=== PATIENT | male | born 1965 | race Caucasian/White ===

== ENCOUNTER 2019-02-27 23:17 | Emergency (ER) | payer MEDICARE ==
[~2019-02-27] VITALS: Ht 185.4 cm; Wt 64.0 kg
[~2019-02-27 23:17] MED LIST: ALBU90OI6 INH; ASPI81CH PO; BREO ELLIPTA 11 EACH IH; FLUSAL2505 INH; LEVO750 PO; Lisinopril2.5 MG PO; METO25ER PO; PRED20 PO; QVAR7.3 G1 IH; SACC250C PO; SPIR50 PO
[2019-02-27 23:50] LABS: BASOPHILS ABSOLUTE AUTO 0.12 K/mm3 (0.00-0.23); BASOPHILS PERCENT AUTO 2 % (0-2); EOSINOPHILS PERCENT AUTO 1 % (0-6); Hematocrit 40.1 % (37.0-53.0); Hemoglobin 13.2 g/dL (13.5-17.5); IMMATURE GRAN ABSOLUTE AUTO 0.05 K/mm3 (0.00-0.10); IMMATURE GRAN PERCENT AUTO 1 % (0-1); LYMPHOCYTES ABSOLUTE AUTO 1.75 K/mm3 (0.84-5.20); LYMPHOCYTES PERCENT AUTO 22 % (21-46); MONOCYTES ABSOLUTE AUTO 0.83 K/mm3 (0.16-1.47); MONOCYTES PERCENT AUTO 10 % (4-13); Mean Corpuscular HGB 33.8 pg (26.0-34.0); Mean Corpuscular HGB Conc 32.9 g/dL (31.5-36.5); Mean Corpuscular Volume 103 fL (80-100); NEUTROPHILS PERCENT AUTO 64 % (41-73); Platelet Count 200 K/mm3 (150-400); Red Blood Cell Count 3.91 M/mm3 (4.30-5.90); White Blood Cell Count 7.95 K/mm3 (4.00-11.30)
[2019-02-28 00:06] LABS: Alanine Aminotransfer (ALT/SGP 11 U/L (12-78); Albumin, Blood 2.5 g/dL (3.4-5.0); Albumin/Globulin Ratio 0.7 (0.8-1.8); Alk Phos 68 U/L (50-136); Anion Gap 8 mmol/L (6-16); Aspartate Aminotrans (AST/SGOT 14 U/L (12-37); Bilirubin, Total 0.4 mg/dL (0.1-1.0); Blood Urea Nitrogen 6 mg/dL (8-24); Bun/Creatinine Ratio 9.1 (12.0-20.0); CO2, Blood 29 mmol/L (21-32); Calcium, Blood 8.3 mg/dL (8.5-10.1); Chloride, Blood 102 mmol/L (98-108); Creatinine, Blood 0.66 mg/dL (0.60-1.20); Globulin, Blood 3.4 g/dL (2.2-4.0); Glomerular Filtration Rate >60 (60-); Glucose, Blood 87 mg/dL (70-99); Potassium, Blood 3.7 mmol/L (3.5-5.5); Sodium, Blood 139 mmol/L (136-145); Total Protein, Blood 5.9 g/dL (6.4-8.2); Troponin I <0.015 ng/mL (0.000-0.040)
[2019-02-28] MEDS ORDERED: Augmentin 500-1 EACH PO (00:57)
== END 2019-02-28 01:39 | disposition home or self-care (01) ==
LOC: ER 23:17
PROVIDERS: Emergency Medicine
DX: J18.9 Pneumonia, unspecified organism (principal); F17.200 Nicotine dependence, unspecified, uncomplicated; Z79.899 Other long term (current) drug therapy; Z79.52 Long term (current) use of systemic steroids; Z79.82 Long term (current) use of aspirin
CPT/HCPCS: 71046; 80053; 83880; 84484; 85025; 93005; 93010; 99284-25

== ENCOUNTER 2019-05-16 10:58 | Inpatient (IN) | payer MEDICARE, OTHER ==
[~2019-05-16] VITALS: Ht 188 cm; Wt 63.5 kg
[~2019-05-16 10:58] MED LIST changes: -ASPI81CH PO; +Aspir 8181 MG PO; +Augmentin 500-1 EACH PO
[2019-05-16] MEDS ORDERED: BUSP10 PO (11:11)
[2019-05-16] MEDS ORDERED: DOXA2 PO (11:12)
[2019-05-16] MEDS ORDERED: Lisinopril2.5 MG PO (11:12)
[2019-05-16] MEDS ORDERED: Nicoderm Cq1 EACH TOP (11:12)
[2019-05-16 11:31] LABS: BASOPHILS ABSOLUTE AUTO 0.14 K/mm3 (0.00-0.23); BASOPHILS PERCENT AUTO 2 % (0-2); EOSINOPHILS ABSOLUTE AUTO 0.14 K/mm3 (0.00-0.68); EOSINOPHILS PERCENT AUTO 2 % (0-6); Hematocrit 42.5 % (37.0-53.0); Hemoglobin 13.8 g/dL (13.5-17.5); IMMATURE GRAN ABSOLUTE AUTO 0.09 K/mm3 (0.00-0.10); IMMATURE GRAN PERCENT AUTO 1 % (0-1); LYMPHOCYTES ABSOLUTE AUTO 1.56 K/mm3 (0.84-5.20); LYMPHOCYTES PERCENT AUTO 22 % (21-46); MONOCYTES ABSOLUTE AUTO 0.67 K/mm3 (0.16-1.47); MONOCYTES PERCENT AUTO 9 % (4-13); Mean Corpuscular HGB 33.3 pg (26.0-34.0); Mean Corpuscular HGB Conc 32.5 g/dL (31.5-36.5); Mean Corpuscular Volume 102 fL (80-100); Mean Platelet Volume 10.1 fL (9.1-12.4); NEUTROPHILS ABSOLUTE AUTO 4.52 K/mm3 (1.96-9.15); NEUTROPHILS PERCENT AUTO 63 % (41-73); Platelet Count 240 K/mm3 (150-400); RDW Coefficient Variation 14.1 % (11.7-14.2); RDW Standard Deviation 53.4 fL (35.1-46.3); Red Blood Cell Count 4.15 M/mm3 (4.30-5.90); White Blood Cell Count 7.12 K/mm3 (4.00-11.30)
[2019-05-16 11:39] LABS: Alanine Aminotransfer (ALT/SGP 17 U/L (12-78); Albumin, Blood 2.6 g/dL (3.4-5.0); Albumin/Globulin Ratio 0.7 (0.8-1.8); Alk Phos 80 U/L (50-136); Anion Gap 5 mmol/L (6-16); Aspartate Aminotrans (AST/SGOT 25 U/L (12-37); Bilirubin, Total 0.3 mg/dL (0.1-1.0); Blood Urea Nitrogen 7 mg/dL (8-24); Bun/Creatinine Ratio 15.5 (12.0-20.0); CO2, Blood 30 mmol/L (21-32); Calcium, Blood 8.4 mg/dL (8.5-10.1); Chloride, Blood 105 mmol/L (98-108); Creatinine, Blood 0.45 mg/dL (0.60-1.20); Globulin, Blood 3.7 g/dL (2.2-4.0); Glomerular Filtration Rate >60 (60-); Glucose, Blood 80 mg/dL (70-99); Potassium, Blood 4.6 mmol/L (3.5-5.5); Sodium, Blood 140 mmol/L (136-145); Total Protein, Blood 6.3 g/dL (6.4-8.2)
[2019-05-16] MEDS ORDERED: BUDE6HFA INH (13:06)
[2019-05-16 16:14] LABS: Magnesium, Blood 1.7 mg/dL (1.6-2.4)
[2019-05-16 16:16] LABS: Thyroid Stimulating Hormone 1.33 uIU/mL (0.360-4.800)
--- NOTE | 2019-05-16 17:47 | NUR ---
PATIENT IS ALERT AND ORIENTED AND COOPERATIVE WITH CARE. HE HAS HAD NO RESPIRATORY DISTRESS SINCE ADMITTED TO MEDICAL FLOOR. HE IS ON 2L O2 VIA NC, THIS IS ALSO HIS HOME DOSE THAT WAS STARTED ON 05/15/19. PATIENT STATES HE DRINKS ABOUT ONE PINT OF [place] DAILY AT NIGHT. THE PATIENT'S BROTHER STATES HE USE TO DRINK MUCH MORE BUT HAS BEEN DECREASING THE AMOUNT. PATIENT IS A CURRENT SMOKER, 1.5 PPD. HE COMPLAINS OF WEAKNESS IN HIS BLE. HE IS STEADY ON HIS FEET, 1PA TO THE BATHROOM. WILL CONTINUE TO MONITOR.
[2019-05-17 05:42] LABS: BASOPHILS ABSOLUTE AUTO 0.05 K/mm3 (0.00-0.23); BASOPHILS PERCENT AUTO 0 % (0-2); EOSINOPHILS ABSOLUTE AUTO 0.02 K/mm3 (0.00-0.68); EOSINOPHILS PERCENT AUTO 0 % (0-6); Hematocrit 37.2 % (37.0-53.0); IMMATURE GRAN PERCENT AUTO 1 % (0-1); LYMPHOCYTES ABSOLUTE AUTO 1.18 K/mm3 (0.84-5.20); LYMPHOCYTES PERCENT AUTO 10 % (21-46); MONOCYTES ABSOLUTE AUTO 1.12 K/mm3 (0.16-1.47); MONOCYTES PERCENT AUTO 10 % (4-13); Mean Corpuscular HGB 33.4 pg (26.0-34.0); Mean Corpuscular HGB Conc 32.3 g/dL (31.5-36.5); Mean Corpuscular Volume 104 fL (80-100); Mean Platelet Volume 9.9 fL (9.1-12.4); NEUTROPHILS ABSOLUTE AUTO 9.03 K/mm3 (1.96-9.15); NEUTROPHILS PERCENT AUTO 79 % (41-73); Platelet Count 231 K/mm3 (150-400); RDW Coefficient Variation 13.9 % (11.7-14.2); Red Blood Cell Count 3.59 M/mm3 (4.30-5.90)
[2019-05-17 06:18] LABS: Alanine Aminotransfer (ALT/SGP 13 U/L (12-78); Albumin, Blood 2.3 g/dL (3.4-5.0); Albumin/Globulin Ratio 0.7 (0.8-1.8); Alk Phos 71 U/L (50-136); Anion Gap 2 mmol/L (6-16); Aspartate Aminotrans (AST/SGOT 15 U/L (12-37); Bilirubin, Total 0.4 mg/dL (0.1-1.0); Blood Urea Nitrogen 16 mg/dL (8-24); Bun/Creatinine Ratio 24.6 (12.0-20.0); CO2, Blood 31 mmol/L (21-32); Calcium, Blood 8.1 mg/dL (8.5-10.1); Chloride, Blood 104 mmol/L (98-108); Creatinine, Blood 0.65 mg/dL (0.60-1.20); Globulin, Blood 3.2 g/dL (2.2-4.0); Glomerular Filtration Rate >60 (60-); Glucose, Blood 138 mg/dL (70-99); Magnesium, Blood 2.1 mg/dL (1.6-2.4); Phosphorus, Blood 2.7 mg/dL (2.5-4.9); Potassium, Blood 4.3 mmol/L (3.5-5.5); Sodium, Blood 137 mmol/L (136-145); Total Protein, Blood 5.5 g/dL (6.4-8.2)
--- NOTE | 2019-05-17 06:20 | NUR ---
PT CONTINUES TO BE MONITORED FOR WITHDRAWL SYMPTOMS. OTHER THAN SLIGHT SHAKINESS, NO NOTED SIGNS OF WITHDRAWL. IVF OF BANANA BAG HAS INFUSED, NOW NS AT 75 ML.2 PER NC, ALERT AND ORIENTED. USES CALL LIGHT APPROPRIATEDL. WILL CONTINUE TO MONITOR.
--- NOTE | 2019-05-17 17:06 | NUR ---
SUMMARY PT SITTING UP IN BED WATCHING TV, HAS BEEN PLEASANT AND COOPERATIVE T/O THE DAY, BARELY ANY SIGNS OF ETOH WITHDRAWL, ONLY SLIGHT TREMOR, NO COMPLAINTS, VSS, NO ACUTE CHANGES, WILL CONT TO MONITOR
--- NOTE | 2019-05-17 17:54 | NUR ---
Mr. Albright is soft-spoken and polite. He denied any gnosticism beleifs. He also denied concerns. It was difficult to enage him in conversation. Per admit trigger, he requested a wire temperer visit. He appeared bewildered by this. I provided assurance of excellent care and attention. [employer] will remain available.
--- NOTE | 2019-05-18 04:59 | NUR ---
SHIFT SUMMARY NO CHANGES THIS SHIFT. PT HAS RESTED FOR MOST OF THE NIGHT, HE DENIES PAIN OR NEEDS. LUNGS REMAIN WITH WHEEZES, PRODUCTIVE COUGH. BREATHING TREATMENTS PER ORDERS. VITALS STABLE, CIWA NEGATIVE. PT RECEIVING BANANA BAG ORDERED. POSSIBLE DC TODAY. BED IN LOWEST POSITION, CALL LIGHT WITHIN REACH. WILL CONTINUE TO MONITOR AND REPORT TO ONCOMING RN.
[2019-05-18] MEDS ORDERED: BENZ100A PO (09:59)
[2019-05-18] MEDS ORDERED: GUAI600T33 PO (09:59)
[2019-05-18] MEDS ORDERED: Vsl#3 Capsule1 EACH PO (10:00)
[2019-05-18] MEDS ORDERED: Prednisone10 MG PO (10:00)
[2019-05-18] MEDS ORDERED: CEFU500T30 PO (10:01)
[2019-05-18] MEDS ORDERED: AZIT500 PO (10:01)
--- NOTE | 2019-05-18 14:06 | NUR ---
SUMMARY/DISCHARGE PT DISCHARGED TO HOME, PT HAS A FOLLOW UP SCHEDULED FOR THE , PT VERBALIZED UNDERSTANDING OF DISCHARGE INSTRUCTIONS REGARDING MEDICATIONS AND FOLLOW UP, PT'S BROTHER HERE TO TAKE THE PT HOME, PT TAKEN OUT SAFELY VIA WHEELCHAIR
== END 2019-05-18 13:25 | disposition home or self-care (01) | DRG 193 ==
LOC: ER 10:58 → MEDS 12:54 → ENPENDDIS 05-18 10:10 → MEDS 05-18 13:25
PROVIDERS: Emergency Medicine; ADMIT Family Medicine
DX: J18.9 Pneumonia, unspecified organism (principal); J96.21 Acute and chronic respiratory failure with hypoxia; J44.0 Chronic obstructive pulmonary disease with (acute) lower respiratory infection; J44.1 Chronic obstructive pulmonary disease with (acute) exacerbation; I10 Essential (primary) hypertension; F17.210 Nicotine dependence, cigarettes, uncomplicated; F10.20 Alcohol dependence, uncomplicated; Z99.81 Dependence on supplemental oxygen; Z88.5 Allergy status to narcotic agent; Z79.82 Long term (current) use of aspirin; Z79.51 Long term (current) use of inhaled steroids; Z79.899 Other long term (current) drug therapy
CPT/HCPCS: 36415; 71045; 80053; 82150; 83605; 83690; 83735; 84100; 84443; 85025; 87040; 93005; 93010; 94640; 94644; 94760; 96365; 96367; 96375; 99285-25; J0456; J0696; J1650; J2930; J3411; J3475; J7030; J7042; J7050; J7512

== ENCOUNTER 2019-09-26 19:11 | Inpatient (IN) | payer MEDICARE, OTHER ==
[~2019-09-26] VITALS: Ht 175.3 cm; Wt 55.6 kg
[~2019-09-26 19:11] MED LIST changes: +AZIT500 PO; +BENZ100A PO; +BUDE6HFA INH; +BUSP10 PO; +CEFU500T30 PO; +DOXA2 PO; +GUAI600T33 PO; +Nicoderm Cq1 EACH TOP; +Prednisone10 MG PO; +Vsl#3 Capsule1 EACH PO
[2019-09-26 20:09] LABS: Hematocrit 46.4 % (37.0-53.0); Hemoglobin 14.9 g/dL (13.5-17.5); Mean Corpuscular HGB 32.5 pg (26.0-34.0); Mean Corpuscular HGB Conc 32.1 g/dL (31.5-36.5); Mean Corpuscular Volume 101 fL (80-100); Mean Platelet Volume 12.2 fL (9.1-12.4); RDW Coefficient Variation 12.2 % (11.7-14.2); RDW Standard Deviation 45.7 fL (35.1-46.3); Red Blood Cell Count 4.58 M/mm3 (4.30-5.90); White Blood Cell Count 10.49 K/mm3 (4.00-11.30)
[2019-09-26 20:23] LABS: Platelet Count 72 K/mm3 (150-400)
[2019-09-26 20:26] LABS: BAND PERCENT MAN 13 % (0-8); BASOPHILS PERCENT MAN 0 % (0-2); EOSINOPHILS PERCENT MAN 1 % (0-6); LYMPHOCYTES ABSOLUTE MAN 0.62 K/mm3 (0.84-5.20); LYMPHOCYTES PERCENT MAN 6 % (21-46); METAMYELOCYTE ABSOLUTE MAN 0.41 K/mm3 (0.00-0.00); METAMYELOCYTE PERCENT MAN 4 % (0-0); MONOCYTES ABSOLUTE MAN 0.62 K/mm3 (0.16-1.47); MONOCYTES PERCENT MAN 6 % (4-13); MYELOCYTE PERCENT MAN 2 % (0-0); NEUTROPHILS ABSOLUTE MAN 8.18 K/mm3 (1.96-9.15); SEG NEUTROPHILS PERCENT MAN 65 % (41-73); TOTAL CELLS COUNTED 100
[2019-09-26 20:27] LABS: PROMYELOCYTE ABSOLUTE MAN 0.31 K/mm3 (0.00-0.00); PROMYELOCYTE PERCENT MAN 3 % (0-0)
[2019-09-26 20:29] LABS: Alanine Aminotransfer (ALT/SGP 49 U/L (12-78); Albumin, Blood 3.1 g/dL (3.4-5.0); Albumin/Globulin Ratio 0.8 (0.8-1.8); Alk Phos 95 U/L (50-136); Anion Gap 3 mmol/L (6-16); Aspartate Aminotrans (AST/SGOT 121 U/L (12-37); Bilirubin, Total 0.4 mg/dL (0.1-1.0); Blood Urea Nitrogen 23 mg/dL (8-24); CO2, Blood 39 mmol/L (21-32); Calcium, Blood 9.3 mg/dL (8.5-10.1); Chloride, Blood 86 mmol/L (98-108); Creatinine, Blood 0.35 mg/dL (0.60-1.20); Globulin, Blood 3.7 g/dL (2.2-4.0); Glomerular Filtration Rate >60 (60-); Glucose, Blood 130 mg/dL (70-99); Potassium, Blood 5.3 mmol/L (3.5-5.5); Sodium, Blood 128 mmol/L (136-145); Total Protein, Blood 6.8 g/dL (6.4-8.2)
[2019-09-26 22:13] LABS: Adenovirus Not Detected (NOT DETECT); Bordetella pertussis Not Detected (NOT DETECT); Chlamydophila pneumoniae Not Detected (NOT DETECT); Coronavirus 229E Not Detected (NOT DETECT); Coronavirus HKU1 Not Detected (NOT DETECT); Coronavirus NL63 Not Detected (NOT DETECT); Coronavirus OC43 Not Detected (NOT DETECT); Human Metapneumovirus Not Detected (NOT DETECT); Human Rhinovirus/Enterovirus Not Detected (NOT DETECT); Influenza A/2009-H1 Not Detected (NOT DETECT); Influenza A/H1 Not Detected (NOT DETECT); Influenza A/H3 Not Detected (NOT DETECT); Influenza B Not Detected (NOT DETECT); Mycoplasma pneumoniae Not Detected (NOT DETECT); Parainfluenza Virus 1 Not Detected (NOT DETECT); Parainfluenza Virus 2 Not Detected (NOT DETECT); Parainfluenza Virus 3 Not Detected (NOT DETECT); Parainfluenza Virus 4 Not Detected (NOT DETECT); Respiratory Syncytial Virus Not Detected (NOT DETECT)
[2019-09-26 23:46] LABS: Source, Urine Catheter
[2019-09-26 23:48] LABS: Appearance, Urine Clear (Clear); Blood, Urine 5+ (Neg); Color, Urine Amber (P-Yellow); Glucose Qualitative, Urine Neg (Neg); Ketones, Urine 2+ (Neg); Leukocyte Esterase, Urine 1+ (Neg); Nitrite, Urine Neg (Neg); Protein, Urine 2+ (Neg); Specific Gravity, Urine 1.025 (1.003-1.022); Urobilinogen, Urine 2+ (Normal)
[2019-09-26 23:49] LABS: Bilirubin, Urine 1+ (Neg)
[2019-09-26 23:54] LABS: Bacteria Many /hpf; Hyaline Casts 25-50 /lpf (0-2); Red Blood Cells, Urine 50-100 /hpf (0-2); Squamous Epithelial Cells Not Seen /hpf (Few)
[2019-09-26 23:55] LABS: WBC Cast 0-2 /lpf (0)
[2019-09-27 01:32] LABS: U Amphetamine Screen Not Detected; U Barbituate Screen Not Detected; U Benzodiazapine Screen Not Detected; U Buprenorphine Screen Not Detected; U Cannabinoids Screen Not Detected; U Cocaine Screen Not Detected; U Methadone Screen Not Detected; U Methamphetamine Screen Not Detected; U Opiates Screen Not Detected; U Oxycodone Screen Not Detected; U Phencyclidine Screen Not Detected; U Propoxyphene Screen Not Detected
--- NOTE | 2019-09-27 01:40 | NUR ---
INITIAL ASSESSMENT PATIENT LETHARGIC AND SLOW TO RESPOND. PATIENT RESPONDS TO VERBAL STIMULI. PATIENT ALERT AND ORIENTED TO SELF, FAMILY, YEAR, PRESIDENT, AND FOLLOWING DIRECTIONS. PATIENT HAS FLAT AFFECT; COOPERATIVE. PATIENT WEAK, CACHECTIC, MALNOURISHED. PATIENT AFEBRILE. PATIENT DENIES PAIN. PATIENT SATTING 90% AND GREATER ON 5 L NC. LUNGS WHEEZY, DIMINISHED AND TIGHT THROUGHOUT. PATIENT DENIES COUGH. SOB WITH EXERTION. PATIENT IN ST WITH FREQUENT PVCS. HR IN THE LOW 100S. BP STABLE. ABDOMEN NONDISTENDED, SOFT, NONTENDER, WITH HYPOACTIVE BS NOTED. DATE OF LAST BM UNKNOWN. PATIENT NPO. ATTENDS ON FOR OCCASIONAL URINARY INCONTINENCE. SKIN IS PALE AND COOL. NAILS CLUBBED. 2+ EDEMA NOTED TO BILAT FEET/ ANKLES. BRUISING NOTED TO BUES. SKIN TEAR TO BACK OF L UPPER ARM. MEPILEX IN PLACE. COCCYX REDDENED. NS INFUSING AT 75 MLS/ HOUR. BED LOW, CALL LIGHT IN REACH. PATIENT ORIENTED TO UNIT, ROOM AND CALL LIGHT. WILL CONTINUE TO MONITOR PATIENT FREQUENTLY THROUGHOUT SHIFT.
[2019-09-27 02:31] LABS: International Normalized Ratio 0.96; Prothrombin Time Results 10.3 Sec (9.7-11.5)
[2019-09-27 02:36] LABS: Troponin I 0.131 ng/mL (0.000-0.040)
[2019-09-27 03:24] LABS: PCO2 Arterial 89.2 mmHg (35-45); PO2 Arterial 71.8 mmHg (80-100); pH Blood Arterial 7.26 (7.35-7.45)
--- NOTE | 2019-09-27 04:30 | NUR ---
RT IN ROOM PLACING PATIENT ON BIPAP AT THIS TIME. BIPAP 10/6, RATE OF 14, 80% FIO2. LUNGS REMAIN WHEEZY, DIMINISHED AND TIGHT SOUNDING. PATIENT IN SR TO ST WITH PVCS, HR 70S TO 120S. BP STABLE. PATIENT AFEBRILE. PATIENT ASKED FOR URINAL; URINE DARK ORANGE IN COLOR. NO OTHER ACUTE CHANGES TO NOTE ON AT THIS TIME. WILL CONTINUE TO MONITOR.
--- NOTE | 2019-09-27 06:10 | NUR ---
SHIFT SUMMARY PATIENT SLEPT MOST OF THE SHIFT AFTER ARRIVING FROM ER AT 0105. PATIENT REMAINED LETHARGIC, COOPERATIVE. PATIENT REMAINED ORIENTED TO SELF, FAMILY, YEAR AND FOLLOWING DIRECTIONS. PATIENT WAKENS TO QUESTIONS BUT MOSTLY FALLS ASLEEP BEFORE ANSWERING. PATIENT REMAINED AFEBRILE. PATIENT HAD NO COMPLAINTS OF PAIN. LUNGS REMAINED SLIGHTLY WHEEZY AND DIMINISHED AND TIGHT SOUNDING. PATIENT STARTED SHIFT ON 5 L NC BUT WAS PLACED ON BIPAP 10/6, RATE OF 14, 80% FIO2 AFTER RECEIVING CRITICAL ABG RESULTS. NO COUGH NOTED. PATIENT REMAINED IN SR TO ST WITH PVCS. HR 70S TO LOW 100S. BP REMAINED STABLE. PATIENT HAD 2 SHORT RUNS OF VTACH SINCE ARRIVING. NO BM THIS SHIFT. PATIENT HAS REMAINED NPO. ATTENDS REMAIN IN PLACE FOR OCCASIONAL INCONTINENCE. PATIENT ASKED TO USE URINAL THIS SHIFT; URINE DARK ORANGE IN COLOR. NO CHANGE IN SKIN. PATIENT REPOSITIONED T/O SHIFT. NS INFUSING AT 75 MLS/ HOUR. PATIENT RECEIVED IV ROCEPHIN AND AZITHROMYCIN THIS SHIFT. PATIENT TO HAVE ECHO TODAY. PULMONOLOGY CONSULT CALLED TO ANSWERING SERVICE. PATIENT HAS NO COMPLAINTS AT THIS TIME. BED LOW, CALL LIGHT IN REACH. WILL CONTINUE TO MONITOR PATIENT FREQUENTLY UNTIL REPORT GIVEN TO ONCOMING DAY SHIFT NURSE SHORTLY.
[2019-09-27 06:26] LABS: Hematocrit 45.2 % (37.0-53.0); Hemoglobin 14.3 g/dL (13.5-17.5); Mean Corpuscular HGB 32.4 pg (26.0-34.0); Mean Corpuscular HGB Conc 31.6 g/dL (31.5-36.5); Mean Corpuscular Volume 102 fL (80-100); Mean Platelet Volume 12.1 fL (9.1-12.4); Platelet Count 65 K/mm3 (150-400); RDW Standard Deviation 45.4 fL (35.1-46.3); Red Blood Cell Count 4.42 M/mm3 (4.30-5.90); White Blood Cell Count 8.57 K/mm3 (4.00-11.30)
[2019-09-27 06:43] LABS: Alanine Aminotransfer (ALT/SGP 49 U/L (12-78); Albumin, Blood 2.8 g/dL (3.4-5.0); Albumin/Globulin Ratio 0.8 (0.8-1.8); Alk Phos 91 U/L (50-136); Anion Gap 4 mmol/L (6-16); Aspartate Aminotrans (AST/SGOT 118 U/L (12-37); Bilirubin, Total 0.4 mg/dL (0.1-1.0); Blood Urea Nitrogen 18 mg/dL (8-24); CO2, Blood 39 mmol/L (21-32); Calcium, Blood 8.6 mg/dL (8.5-10.1); Chloride, Blood 89 mmol/L (98-108); Globulin, Blood 3.3 g/dL (2.2-4.0); Glomerular Filtration Rate >60 (60-); Glucose, Blood 94 mg/dL (70-99); Potassium, Blood 5.3 mmol/L (3.5-5.5); Sodium, Blood 132 mmol/L (136-145); Total Protein, Blood 6.1 g/dL (6.4-8.2)
--- NOTE | 2019-09-27 07:15 | NUR ---
BEGINNING OF SHIFT Assumed care of pt at 0700. Report received from Germania COVARRUBIAS. Pt on BiPAP 03/11, 80%. Pt given break from BiPAP. A&O x 4. Pt initially SR with several PVCs. Pt did have one event that alarmed as ventricular tachycardia, approx 8 seconds long. Pt asymptomatic. Call placed to Dr Patel. Stat magnesium added to morning labs. BP stable. Pt given break from BiPAP. Pt states he does not feel short of breath. Denies chest pain. While pt off BiPAP, pt noted to be in sinus rhythm with bigeminal PVCs.
--- NOTE | 2019-09-27 09:45 | NUR ---
DR LEONARD IN ROOM Pt off BiPAP while provider in room. Pt states he drinks 1 pint of whiskey per day. Pt states he would like provider to discuss plan of care with the pt's brother. Provider states plan for liver biopsy. Provider states okay to give lovenox today and plan for biopsy tomorrow.
[2019-09-27 09:46] LABS: Troponin I 0.102 ng/mL (0.000-0.040)
[2019-09-27 10:36] LABS: PO2 Arterial 69.9 mmHg (80-100); pH Blood Arterial 7.32 (7.35-7.45)
[2019-09-27 10:37] LABS: PCO2 Arterial 77.5 mmHg (35-45)
--- NOTE | 2019-09-27 10:49 | NUR ---
Echocardiogram completed.
--- NOTE | 2019-09-27 11:26 | NUR ---
UPDATE Pt's brother given update by Dr De La Garza. Madhu from CT states pt's biopsy will be done tomorrow at 1100. Lovenox to be held.
--- NOTE | 2019-09-27 17:32 | NUR ---
Initial spiritual care note: Mr. Albright is very soft-spoken and mild-mannered. He appears quite frail and slightly muddled. He tells me he is here b/c of COPD. When asked about possibility of cancer, he shrugged and said "ok." In fact, he said "ok" to most everything. He denied pain/concerns. He says he lives with his brother and 10 yo grandson. He did not appear able to engage in meaningful conversation. He was very pleasant and thanked me for everything. He does not appear to grasp his serious dx. Re Etcher services will remain available.
[2019-09-27 18:20] LABS: Anion Gap -1 mmol/L (6-16); Blood Urea Nitrogen 16 mg/dL (8-24); Bun/Creatinine Ratio 42.7 (12.0-20.0); CO2, Blood 39 mmol/L (21-32); Calcium, Blood 8.7 mg/dL (8.5-10.1); Chloride, Blood 90 mmol/L (98-108); Creatinine, Blood 0.38 mg/dL (0.60-1.20); Glomerular Filtration Rate >60 (60-); Glucose, Blood 175 mg/dL (70-99); Magnesium, Blood 2.1 mg/dL (1.6-2.4); Potassium, Blood 5.2 mmol/L (3.5-5.5); Sodium, Blood 128 mmol/L (136-145)
--- NOTE | 2019-09-27 18:45 | NUR ---
Attemtpted to meet with patient. Recieving care and fatigued and had to go on bipap. Some s/s of possible withdrawl. Review of patient with nursing and chaplian. After review with staff pt presents as having fatigue and fraility and stuggling with decision making and following the conversation. Decided with nurisng staff to call patient brother Serg. Review of pt current condition on bipap and possible plans of care. Serg displayed some caregiver stress. He states he has been his brothers advocate and helped him with decisions for quite some time now. Serg relayed he has adopted his brothers grandson. He is having stress with quarantine and home schooling the child. Serg states his son in now staying with them and is helping him. Asked serg to relay what he understood from his conversation with doctor Charlie. He feels his brother will not tolerate cancer treatment. We reviewed decison making, code status, recusitation and end of life care. At this time Serg feels he would want to be resusitated. We discussed if he was to go on ventilatory support and it failed can he make the difficult decision to withdraw care. Serg stated he could make the decision. Advised that I will speak with patient tomorrow about his status. Serg states that if biopsy positive it probably would be best to make him DNR and we briefly discussed hospice or end of life care. Focused on minimizing any more suffering for his brother. He was relieved from expressing some of his stress and help with a plan. Will attempt to do a phone visit or zoom meeting with the pt and family tomorrow. Pt high risk for compicated withdrawls and possible seizure reviewed with nursing. pt kps score is 40%. pt having dyrythmias. Advised the patients brother to talk to his son and think about choices. Advised him if he declines further nursing will call with updates and may ask again about recusitation. Will follow up with brother after visit with patient tomorrow. will offer chaplian services for him and the grandson to offer assitance in helping the child understand and accept passing of a loved one.
--- NOTE | 2019-09-27 19:00 | NUR ---
ASSUMED CARE NOTE: ASSUMED CARE OF PT @ 1900, RECEVIED REPORT FROM EDDIE COVARRUBIAS. UPON ENTERING ROOM PT WAS ON BIPAP WITH SETTINGS @ 10/6, FiO2 60%, SPO2 ABOVE 90%. PT IS DIM T/O, NO COUGH NOTED. PT IS AFEBRILE. PT IS CONFUSED, HOWEVER IS ORIENTED TO SELF AND ABLE TO FOLLOW DIRECTIONS. PT IS IN BILAT SWR TO PREVENT PT FROM PULLING OFF BIPAP. PT IS IN SINUS TACH WITH HR @ 105. PT DENIES ANY SOB, NAUSEA, PAIN AT THIS TIME. BOWEL TONES HEARD IN ALL FOUR QUADRANTS. PT WAS INCONTINENT, CONDOM CATH WILL BE PLACED TO PREVENT FURTHER SKIN BREAKDOWN. SACRUM IS RED, MEPILEX IN PLACE. WILL CONTINUE TO MONITOR PT T/O SHIFT. BED AT LOWEST LEVEL.
--- NOTE | 2019-09-27 19:28 | NUR ---
SUMMARY Pt initially A&O x 4, pleasant and cooperative with care. This afternoon, pt confused, disoriented, anxious, agitated and irritable. A&O x 1. Pt continuously removing oxygen delivery device whether he was on BiPAP or oxymizer; pt was also removing SpO2 probe at the same time. Pt not following commands. Pt placed in soft wrist restraints. Dr De La Garza updated on pt's mentation. Pt BiPAP settings 10/6, 60%. Pt on 6 LPM oxymizer when not on BiPAP. No additional changes t/o shift. Report given to Uma COVARRUBIAS.
[2019-09-28 03:32] LABS: EOSINOPHILS PERCENT AUTO 0 % (0-6); Hematocrit 42.7 % (37.0-53.0); Hemoglobin 13.5 g/dL (13.5-17.5); IMMATURE GRAN ABSOLUTE AUTO 0.29 K/mm3 (0.00-0.10); IMMATURE GRAN PERCENT AUTO 3 % (0-1); LYMPHOCYTES ABSOLUTE AUTO 0.67 K/mm3 (0.84-5.20); LYMPHOCYTES PERCENT AUTO 6 % (21-46); MONOCYTES ABSOLUTE AUTO 0.78 K/mm3 (0.16-1.47); MONOCYTES PERCENT AUTO 7 % (4-13); Mean Corpuscular HGB 31.9 pg (26.0-34.0); Mean Corpuscular HGB Conc 31.6 g/dL (31.5-36.5); Mean Corpuscular Volume 101 fL (80-100); Mean Platelet Volume 11.7 fL (9.1-12.4); NEUTROPHILS ABSOLUTE AUTO 9.43 K/mm3 (1.96-9.15); NEUTROPHILS PERCENT AUTO 84 % (41-73); Platelet Count 66 K/mm3 (150-400); RDW Standard Deviation 44.8 fL (35.1-46.3); Red Blood Cell Count 4.23 M/mm3 (4.30-5.90); White Blood Cell Count 11.18 K/mm3 (4.00-11.30)
[2019-09-28 03:36] LABS: BASOPHILS ABSOLUTE AUTO 0.01 K/mm3 (0.00-0.23); BASOPHILS PERCENT AUTO 0 % (0-2)
[2019-09-28 03:50] LABS: Alanine Aminotransfer (ALT/SGP 40 U/L (12-78); Albumin, Blood 2.6 g/dL (3.4-5.0); Albumin/Globulin Ratio 0.8 (0.8-1.8); Alk Phos 79 U/L (50-136); Anion Gap 4 mmol/L (6-16); Aspartate Aminotrans (AST/SGOT 132 U/L (12-37); Bilirubin, Total 0.4 mg/dL (0.1-1.0); Blood Urea Nitrogen 16 mg/dL (8-24); Bun/Creatinine Ratio 45.3 (12.0-20.0); CO2, Blood 38 mmol/L (21-32); Chloride, Blood 90 mmol/L (98-108); Creatinine, Blood 0.35 mg/dL (0.60-1.20); Globulin, Blood 3.4 g/dL (2.2-4.0); Glomerular Filtration Rate >60 (60-); Glucose, Blood 105 mg/dL (70-99); Magnesium, Blood 1.8 mg/dL (1.6-2.4); Potassium, Blood 5.2 mmol/L (3.5-5.5); Sodium, Blood 132 mmol/L (136-145)
[2019-09-28 04:04] LABS: BAND PERCENT MAN 15 % (0-8); BASOPHILS PERCENT MAN 0 % (0-2); EOSINOPHILS ABSOLUTE MAN 0.11 K/mm3 (0.00-0.68); EOSINOPHILS PERCENT MAN 1 % (0-6); LYMPHOCYTES ABSOLUTE MAN 0.67 K/mm3 (0.84-5.20); LYMPHOCYTES PERCENT MAN 6 % (21-46); METAMYELOCYTE ABSOLUTE MAN 0.44 K/mm3 (0.00-0.00); METAMYELOCYTE PERCENT MAN 4 % (0-0); MONOCYTES ABSOLUTE MAN 0.33 K/mm3 (0.16-1.47); MONOCYTES PERCENT MAN 3 % (4-13); NEUTROPHILS ABSOLUTE MAN 9.61 K/mm3 (1.96-9.15); SEG NEUTROPHILS PERCENT MAN 71 % (41-73); TOTAL CELLS COUNTED 100
[2019-09-28 04:53] LABS: PCO2 Arterial 93.9 mmHg (35-45); PO2 Arterial 72.3 mmHg (80-100); pH Blood Arterial 7.25 (7.35-7.45)
--- NOTE | 2019-09-28 06:17 | NUR ---
SHIFT SUMMARY: PT REMAINS ON BIPAP, WITH SETTINGS CHANGED TO 20/8 WITH FiO2 55%, SPO2 ABOVE 90%, RR IN THE 20'S. PT IS DIM T/O, NO PRODUCTIVE COUGH NOTED. PT HAD A CRITICAL ABG THIS AM, CALLED DR. LEONARD WITH RESULTS, NO ORDERS GIVEN. PT CONTINUES TO BE CONFUSED, HOWEVER, ABLE TO FOLLOW DIRECTIONS. PT WAS GIVEN ONE DOSE OF ATIVAN TO AGITAION. PT TOOK BIPAP MASK OFF SEVERAL TIMES DURING THE SHIFT, HE ALSO CONTINUED TO PULL OFF LEADS TO THE HEART MONITOR. BILAT SWR IN PLACE. VSS. PT HAS CONTINUED TO BE IN SINUS TACH WITH PVC'S. CONDOM CATH IN PLACE, ALY URINE NOTED. BED AT LOWEST LEVEL. WILL CONTINUE TO MONITOR PT UNTIL REPORT IS GIVEN TO ONCOMING SHIFT.
--- NOTE | 2019-09-28 08:00 | NUR ---
PT AWAKENS TO VERBAL AND IS CONFUSED AND AGITATED. NOT FOLLOWING COMMANDS AT THIS TIME. HUSAIN, BUT WEAK. SOFT WRIST RESTRAINTS IN PLACE TO PREVENT PULLING ON LINES AND TUBES-PT PULLING ON WRIST RESTRAINTS. ECG SHOWS ST WITH RAT 110'S. SBP TRENDING 110'S. LUNGS COARSE T/O AND DIMINISHED IN THE BASES. PT IS TACHYPNEIC AND LABORING TO BREATH. OCCASIONAL WEAK, MOIST, NONPRODUCTIVE COUGH NOTED. SATS>90% ON BIPAP 20/8 WITH FIO2 55%. NPO DUE TO RESP. DISTRESS. CONDOM CATH IN PLACE-DRAINING SMALL AMOUNT OF DARK, YELLOW URINE. MEPILEX C/D/I TO COCCYX. LUE WITH KERLIX C/D/I.
--- NOTE | 2019-09-28 08:36 | NUR ---
PT INCREASINGLY AGITATED-PULLING ON RESTRAINTS. MED WITH ATIVAN 1 MG IVP X1. LIVER BIOPSY CANCELED PER KATRINA IN CT UNTIL COVID IS RULED OUT.
--- NOTE | 2019-09-28 09:47 | NUR ---
DR. LEONARD HERE TO SEE PT. UPDATED TO CURRENT VS AND STATUS. ABG TO BE DRAWN AT NOON.
--- NOTE | 2019-09-28 10:18 | NUR ---
NUBIA DRAWN AND RESULTS REVIEWED WITH DR. LEONARD-INITIALLY ABG TO BE DONE @ 1200-DRAWN STAT PER MD REQUEST.
[2019-09-28 10:22] LABS: PCO2 Arterial 65.6 mmHg (35-45); pH Blood Arterial 7.38 (7.35-7.45)
--- NOTE | 2019-09-28 11:40 | NUR ---
PT AGITATED AND REACHING FOR BIPAP MASK WHEN NOT RESTRAINED. RESP RATE 40'S. LUNGS REMAIN COARSE. SATS>90% ON FIO2 55%. #16 COUDE PLACED-300 CC DARK, YELLOW URINE OUT IMMEDIATELY. SMALL AMOUNT OF BLOOD OOZING AROUND MEATUS AFTER INSERTION. BED BATH AND LINEN CHANGE COMPLETED TOLERATED FAIR-APPEARS VERY AGITATED. MED WITH ATIVAN 1 MG IVP-SEE EMAR. POSTIONED TO COMFORT ON RIGHT SIDE. NA PHOS 20 MMOL RIDER INFUSING-SEE EMAR.
--- NOTE | 2019-09-28 12:00 | NUR ---
CIWA 12. RR 30-40'S. PT PULLING AT RESTRAINTS. APPEARS AGITATED.
--- NOTE | 2019-09-28 14:30 | NUR ---
PT CONTINUES TO LABOR TO BREATH. HE IS INTERMITTENTLY AGITATED. HE PULLS ON WRIST RESTRAINTS AND REACHES FOR BIPAP MASK WHEN NOT RESTRAINED. CIWA 12- PRECEDEX DRIP INITIATED.
--- NOTE | 2019-09-28 16:02 | NUR ---
PT RESTING WHEN NOT DISTURBED ON PRECEDEX @ 0.5 MCG/MIN. CIWA 7. PT OPENS EYES TO VERBAL, BUT DOES NOT FOLLOW COMMANDS. CONTINUES TO REACH FOR BIPAP MASK WHEN NOT RESTRAINED. LUNGS REMAIN COARSE THROUGH OUT. SATS>90% ON FIO2 50%. RR 20'S.
--- NOTE | 2019-09-28 17:35 | NUR ---
DR. LEONARD UPDATED TO CURRENT VS AND STATUS. MD AWARE THAT PT IS TOLERATING BIPAP WELL WITH PRECEDEX @ 0.4MCG/MIN. HOWEVER, SBP 70'S-NS 500 CC BOLUS ORDERED, THEN LR @ 150 CC/HR THEREAFTER.
--- NOTE | 2019-09-28 18:15 | NUR ---
SBP TRENDING 80'S AND MAP 60-65 SINCE NS 500 CC BOLUS GIVEN. LR @ 150CC/HR INITIATED.
--- NOTE | 2019-09-28 18:48 | NUR ---
MAP CONTINUES TO TREND 60-65-HR 70'S SR WITH PAC'S. RR 20'S. RESTING QUIETLY ON BIPAP WITH PRECEDEX @ 0.4 MCG/MIN.
--- NOTE | 2019-09-28 20:27 | NUR ---
PATIENT ON BIPAP WITH PRECEDEX INFUSING AT 0.5MCG/KG/HR. RESPONDS TO VERBAL STIMULI, STATES TO HAVING ALL OVER PAIN BUT NOT ABLE TO ANWERS ANY OTHER SIMPLE QUESTIONS. BILATERAL WRIST RESTRAINTS IN PLACE DUE TO PULLING AT BIPAP, LINES/TUBES. HUSAIN'S WELL, BUT WEAK. RESTLESSNESS NOTED. WILL MEDICATE WITH ATIVAN 1MG IV AND TITRATE PRECEDEX TO EFFECT FOR ANXIETY/PAIN. VSS WITH HR SINUS WITH OCCASIONAL PVC'S NOTED. NPO STATUS. PINEDA PATIENT. CONTINUE TO MONITOR AND TX PRN.
--- NOTE | 2019-09-29 | NUR ---
DECREASE URINE OUTPUT NOTED, CONTINUE TO MONITOR. AFEBRILE.VSS. MEATUS NOTED TO HAVE SCANT AMOUNT RED SS DRAINAGE. CLEANED AREA, CONTINUE TO MONITOR.
[2019-09-29 03:41] LABS: BASOPHILS ABSOLUTE AUTO 0.09 K/mm3 (0.00-0.23); BASOPHILS PERCENT AUTO 1 % (0-2); EOSINOPHILS ABSOLUTE AUTO 0.01 K/mm3 (0.00-0.68); EOSINOPHILS PERCENT AUTO 0 % (0-6); Hematocrit 37.3 % (37.0-53.0); Hemoglobin 11.9 g/dL (13.5-17.5); IMMATURE GRAN ABSOLUTE AUTO 0.59 K/mm3 (0.00-0.10); IMMATURE GRAN PERCENT AUTO 6 % (0-1); LYMPHOCYTES ABSOLUTE AUTO 0.71 K/mm3 (0.84-5.20); LYMPHOCYTES PERCENT AUTO 7 % (21-46); MONOCYTES ABSOLUTE AUTO 0.74 K/mm3 (0.16-1.47); MONOCYTES PERCENT AUTO 8 % (4-13); Mean Corpuscular HGB 32.2 pg (26.0-34.0); Mean Corpuscular HGB Conc 31.9 g/dL (31.5-36.5); Mean Corpuscular Volume 101 fL (80-100); Mean Platelet Volume 11.1 fL (9.1-12.4); NEUTROPHILS ABSOLUTE AUTO 7.54 K/mm3 (1.96-9.15); NEUTROPHILS PERCENT AUTO 78 % (41-73); Platelet Count 56 K/mm3 (150-400); RDW Coefficient Variation 12.2 % (11.7-14.2); RDW Standard Deviation 45.5 fL (35.1-46.3); Red Blood Cell Count 3.69 M/mm3 (4.30-5.90); White Blood Cell Count 9.68 K/mm3 (4.00-11.30)
--- NOTE | 2019-09-29 03:45 | NUR ---
BIPAP OFF FOR ORAL CARE. INCREASE ALTERNESS. ASKED IF BROTHER IS NOTIFIED ABOUT HIS STATUS. AFTER BEING OFF BIPAP FOR 5 MINUTES, PATIENT REQUESTING FOR OXYGEN, BIPAP PLACED BACK ON. CONTINUE TO MONITOR.
[2019-09-29 03:59] LABS: Alanine Aminotransfer (ALT/SGP 36 U/L (12-78); Albumin, Blood 2.4 g/dL (3.4-5.0); Albumin/Globulin Ratio 0.8 (0.8-1.8); Alk Phos 75 U/L (50-136); Anion Gap 4 mmol/L (6-16); Aspartate Aminotrans (AST/SGOT 148 U/L (12-37); Bilirubin, Total 0.3 mg/dL (0.1-1.0); Blood Urea Nitrogen 15 mg/dL (8-24); Bun/Creatinine Ratio 42.6 (12.0-20.0); CO2, Blood 37 mmol/L (21-32); Calcium, Blood 8.9 mg/dL (8.5-10.1); Chloride, Blood 91 mmol/L (98-108); Creatinine, Blood 0.35 mg/dL (0.60-1.20); Globulin, Blood 3.1 g/dL (2.2-4.0); Glomerular Filtration Rate >60 (60-); Glucose, Blood 103 mg/dL (70-99); Phosphorus, Blood 2.4 mg/dL (2.5-4.9); Potassium, Blood 5.4 mmol/L (3.5-5.5); Sodium, Blood 132 mmol/L (136-145); Total Protein, Blood 5.5 g/dL (6.4-8.2)
[2019-09-29 04:01] LABS: BAND PERCENT MAN 5 % (0-8); BASOPHILS PERCENT MAN 0 % (0-2); EOSINOPHILS PERCENT MAN 0 % (0-6); LYMPHOCYTES ABSOLUTE MAN 0.38 K/mm3 (0.84-5.20); LYMPHOCYTES PERCENT MAN 4 % (21-46); METAMYELOCYTE ABSOLUTE MAN 0.09 K/mm3 (0.00-0.00); METAMYELOCYTE PERCENT MAN 1 % (0-0); MONOCYTES ABSOLUTE MAN 0.58 K/mm3 (0.16-1.47); MONOCYTES PERCENT MAN 6 % (4-13); NEUTROPHILS ABSOLUTE MAN 8.61 K/mm3 (1.96-9.15); SEG NEUTROPHILS PERCENT MAN 84 % (41-73); TOTAL CELLS COUNTED 100
[2019-09-29 05:04] LABS: PCO2 Arterial 60.8 mmHg (35-45); PO2 Arterial 89.3 mmHg (80-100); pH Blood Arterial 7.39 (7.35-7.45)
--- NOTE | 2019-09-29 06:17 | NUR ---
SHIFT SUMMARY PATIENT REMAIN ON BIPAP T/O WITH VERY SHORT BREAKS, STARTS TO HAVE DIFFICULTY BREATHING. BIPAP SETTINGS 20/8 AND TITRATED FIO2 DOWN TO 35% WITH SATS >95%. BP STABLE WITH PRECEDEX INFUSING AT 0.4MCG/KG/HR. LUNGS WITH COARSE WHEEZE WITH UPPER MOIST MACHINE LOAD CLERK COUGH. NPO STATUS. DECREASE URINE OUTPUT NOTED FOR SHIFT. PINEDA PATIENT WITH OCCASIONAL SEDIMENT NOTED AND OCCASIONAL SCANT AMOUNT OF RED SANGUINEOUS DRAINAGE FROM MEATUS. HUSAIN'S WELL. BILATERAL WRIST RESTRAINTS IN PLACE DUE TO PULLING AT BIPAP, LINES AND TUBES. NEW SKIN TEAR TO RFA, CLEANSED AND MEPILEX DRSG PLACED. NO OTHER CHANGES NOTED, WILL REPORT OFF TO DAY SHIFT RN.
--- NOTE | 2019-09-29 08:00 | NUR ---
PT AWAKE AND PULLING AT RESTRAINTS. GIVEN BREAK FROM BIPAP. PT ORIENTED TO SELF AND FOLLOWING COMMANDS, BUT DISORIENTED TO DATE AND TIME. PT APPEARS RESTLESS AND AGITATED. PT REQUESTS "SOMETHING TO HELP ME RELAX." TITRATED PRECEDEX UP TO 0.5 MCG/MIN AND MED WITH 0.5 MG ATIVAN IV X1. ECG SHOWS SR TO ST WITH RATE 70-100'S. SBP 110'S. LUNGS REMAIN COARSE THROUGH OUT, BUT PT APPEARS TO BE LABORING LESS THAN 09/28/19. RR 20'S. SATS DOWN TO 87% AFTER 5 MINUTES ON 3 LITERS NASAL CANULA. SATS RETURNED TO >90% ON BIPAP 20/8 WITH FIO2 35% RESUMED. PT REMAINS NPO. PINEDA WITH SMALL AMOUNT OF DARK, YELLOW URINE TO BSD. MEPILEX INTACT TO COCCYX.
--- NOTE | 2019-09-29 09:23 | NUR ---
PT RESTLESS AND THRASHING IN BED. MOANING, KICKING HIS LEGS, AND PULLING ON WRIST RESTRAINT. REPOSITIONED TO COMFORT ON RIGHT SIDE. TITRATED PRECEDEX TO 0.6 MCG/MIN.
--- NOTE | 2019-09-29 09:35 | NUR ---
PT CONTINUES TO MOAN. WHEN ASKED IF IN ANY PAIN-PT STATES "YES! I HURT ALL OVER." DR. LEONARD MADE AWARE AND ORDER GIVEN FOR FENTANYL 25 MCG IVP Q 4 HOURS PRN PAIN. SEE EMAR.
--- NOTE | 2019-09-29 12:01 | NUR ---
PT OFF OF BIPAP AND ON 3 LITERS OXYMIZER FOR APROX. 30 MIN. DURING THIS TIME, HE WAS SHAVED, EXTENSIVE BATHING DONE, AND LINEN CHANGE COMPLETED. PT BECAME AGITATED WITH THE LINEN CHANGE. HE BECAME TACHYPNEIC AND DYSPNEIC. BIPAP MASK REPLACED. PT MOANING AND ATTEMPTING TO REMOVE THE BIPAP MASK. PRECEDEX TITRATED UP TO 0.6 MCG/MIN AND PT POSITIONED TO COMFORT ON LEFT SIDE. PT SKIN VERY FRAGILE-IT IS DRY WITH FLAKY, NICOTINE STAINED APPEARANCE. FOAM HEEL DRESSING PLACE FOR PREVENTION OF SKIN BREAKDOWN-MEPILEX TO COCCYX REPLACED. COCCYX SLIGHTLY RED, BUT NO SKIN BREAKDOWN.
--- NOTE | 2019-09-29 12:18 | NUR ---
PT YELLING INTO BIPAP MASK "WHAT IS GOING ON?" PT PULLING AT RESTRAINTS AND BANGING HIS ARMS ON THE SIDERAILS. MED WITH ATIVAN 1 MG IVP X 1.
--- NOTE | 2019-09-29 13:21 | NUR ---
PT CURRENTLY RESTING QUIETLY ON BIPAP. RR 20'S. SATS>90% ON FIO2 35%-PRECEDEX @ 0.7 MCG/MIN.
--- NOTE | 2019-09-29 14:29 | NUR ---
PT SPOUSE SAKINA CALLED REGARDING THE LOSS OF PT PHONE. SHE APPEARED VERY IRRITATED BY THE SITUATION. I EXPLAINED TO HER THE LAST TIME I SAW THE PHONE YESTERDAY AND ALSO THE STEPS THAT I TOOK TO ATTEMPT TO FIND THE PHONE. PT SPOUSE REQUESTING TO KNOW THE COMPANY THAT THE [facility] SENDS THE LINEN TO. I CALLED THE NURSING SOFTWARE RECRUITER VIKA AND ASKED HIM TO GIVE HER A CALL.
--- NOTE | 2019-09-29 14:46 | NUR ---
PT RESTLESS. GRIMACING AND PULLING ON RESTRAINTS. WHEN ASKED IF IN PAIN-PT STATES "YES." PT NOT ABLE TO STATE THE QUALITY OR LOCATION OF HIS PAIN AT THIS TIME. PT REPOSITIONED TO COMFORT ON RIGHT SIDE AND MED WITH FENTANYL 25 MCG IVP X 1 FOR PAIN-SEE EMAR.
--- NOTE | 2019-09-29 16:17 | NUR ---
PT RESTING QUIETLY ON BIPAP WHEN NOT DISTURBED WITH PRECEDEX @ 0.7 MCG/MIN. PT GIVEN BRIEF BREAK FROM BIPAP FOR ORAL CARE-PT ONLY TOLERATED BEING OFF BIPAP BREIFLY. HIS SATS DROPPED TO THE 80'S-HE BECAME TACHYPNEIC AND DYSPNEIC. REPLACED BIPAP ANT SATS RETURNED TO 90'S-FIO2 HAD TO BE TITRATED UP TO 40%. PT CONTINUES TO HAVE WEAK, MOIST, NONPRODUCTIVE COUGH.
--- NOTE | 2019-09-29 17:58 | NUR ---
PT MOANING, GRIMACING, AND BANGING ON SIDERAILS. NEW SKIN TEAR NOTED TO LEFT WRIST/FOREARM AREA. CLEANSED WITH WOUND CLEANSER AND STERI STRIPS- 4X4 AND COBAN APPLIED. MED WITH FENTANYL 25 MCG IVP X 1 FOR PAIN.
--- NOTE | 2019-09-29 18:29 | NUR ---
PT APPEARS TO BE SLEEPING. NO NOTED DISTRESS AT THIS TIME.
--- NOTE | 2019-09-29 21:15 | NUR ---
PATIENT LAYING IN BED WITH BIPAP IN PLACE. AWAKES WITH VERBAL/TACTILE STIMULI. ATTEMPTS TO TRY TO TALKE. BIPAP REMOVED FOR ORAL CARE. PATIENT STATES "MY BACK HURTS, I NEED A CIGARETTE". WILL MEDICATE WITH PAIN MEDICATION WHEN TIME ALLOWS. REPOSITION FOR COMFORT. PATIENT STATES "WANT TO GO HOME". RE-EDUCATED PATIENT ABOUT DISEASE PROCESS/TREATMENTS. NO RESPONSE, PURSE LIP BREATHING NOTED, BIPAP REPLACED. PRECEDEX GTT INFUSING FOR COMFORT OF BIPAP WITH BILATERAL WRIST RESTRAINTS IN PLACE DUE TO PULLING AT BIPAP/LINES/TUBES. VSS. NPO STATUS. CONTINUE TO MONITOR AND TX PRN.
--- NOTE | 2019-09-29 22:00 | NUR ---
INCREASE RESTLESSNESS IN BED, ATIVAN 1MG IVP GIVEN PER ORDER FOR ANXIETY. CONTINUE TO MONITOR AND TX PRN.
--- NOTE | 2019-09-30 00:04 | NUR ---
WHEN BIPAP OFF FOR ORAL CARE. STATES "YES" OF PAIN DOING BETTER. WILL REPOSITION AND MEDICATE FOR PAIN PER ORDERS. MONITOR AND TX PRN.
--- NOTE | 2019-09-30 00:23 | NUR ---
GOOD RELIEF WITH PAIN MED, RESTING/SLEEPING COMFORTABLE. MONITOR AND TX PRN.
--- NOTE | 2019-09-30 01:54 | NUR ---
CALL TO DR LEONARD IN REGARDS TO PATIENTS INCREASE BP AND RESPIRATORY RATE DUE TO INCREASE BACK PAIN. NEW ORDERS FOR PAIN MEDS. MEDICATE GIVEN FOR PAIN AND GOOD RELIEF NOTED. DECREASE RESPIRATORY RATE AND BP. PATIENT STATES "YES" TO HAVING PAIN RELIEF. MEDICATE PRN.
--- NOTE | 2019-09-30 05:51 | NUR ---
SHIFT SHUMMARY PATIENT REMAIN ON BIPAP T/O NIGHT WITH VERY SMALL BREAKS FOR ORAL CARE. DIDN'T TOLERATE BEING OFF MORE THAN 5-10 MINS, INCREASE SOB NOTED WITH DECREASE SATS 83%. LUNGS COARS WITH WHEEZE BUT INCREASE CONGESTION TO UPPER AIRWAY NOTED. NOT ABLE TO CLEAR SECRETIONS DUE TO WEAKNESS. WAS ABLE TO EXPRESS CONCERNS OF HAVING BACK PAIN, NEW ORDERS TO TX WITH FENTANYL 25-50MCG IV Q2 PRN WITH GOOD RESULTS NOTED. ATIVAN 1MG IVP ALSO GIVEN FOR RESTLESSNESS/AXIETY. PRECEDEX INFUSING AT RATE 0.7MCG/KG/HR. BILATERAL WRIST RESTRAINTS IN PLACE DUE TO PULLING AT BIPAP/LINES/TUBES. VSS. SINUS RHYTHM WITH FREQENT PVC'S NOTED AND X1 7 BEAT RUN PVC'S. BRIDGE OF NOSE WITH PRESSURE SORE NOTED. GEL IN PLACE TO HELP PREVENT PRESSURE SORE. RT NOTIFIED TO EVALUATE BIPAP MASK AND STATES "WILL PASS ON TO DAY SHIFT RT TO MONITOR". REMAINS NPO STATUS. VERY DECONDITION. NO OTHER CHANGES NOTED, WILL REPORT OFF TO DAY SHIFT RN.
--- NOTE | 2019-09-30 07:32 | NUR ---
ASSUMED CARE OF PATIENT. AROUSES TO SPEECH, FOLLOWS COMMANDS, ABLE TO ANSWER QUESTIONS BUT IS SLOW TO RESPOND. ON BIPAP 20/8, 40% FIO2. LUNGS WITH COARSE CRACKLES, RR 28-35, O2 SAT 95%. PINEDA DRAINING PALE YELLOW URINE. SEVERE ECCHYMOSIS ON BUE. LR @ 150 ML/HR, PRECEDEX @ 0.7 MCG/KG/HR. DENIES PAIN AT THIS TIME.
--- NOTE | 2019-09-30 08:54 | NUR ---
spoke with Ana dee of COVID-19 specimen and results. She stated that she is able to call for result but unable to result it in the computer. Pt is COVID 19 negative as per Ana.
[2019-09-30 09:35] LABS: Hematocrit 31.9 % (37.0-53.0); Hemoglobin 10.4 g/dL (13.5-17.5); Mean Corpuscular HGB Conc 32.6 g/dL (31.5-36.5); Mean Platelet Volume 11.8 fL (9.1-12.4); NRBC ABSOLUTE 0.03 K/mm3 (0.00-0.02); NRBC Auto 0.3 /100 WBC (0.0-0.2); Platelet Count 54 K/mm3 (150-400); RDW Coefficient Variation 12.2 % (11.7-14.2); RDW Standard Deviation 44.2 fL (35.1-46.3); Red Blood Cell Count 3.25 M/mm3 (4.30-5.90); White Blood Cell Count 10.27 K/mm3 (4.00-11.30)
[2019-09-30 09:43] LABS: Mean Corpuscular Volume 98 fL (80-100)
[2019-09-30 09:51] LABS: Alanine Aminotransfer (ALT/SGP 44 U/L (12-78); Albumin, Blood 2.1 g/dL (3.4-5.0); Albumin/Globulin Ratio 0.8 (0.8-1.8); Alk Phos 129 U/L (50-136); Anion Gap 4 mmol/L (6-16); Aspartate Aminotrans (AST/SGOT 496 U/L (12-37); Bilirubin, Total 0.4 mg/dL (0.1-1.0); Blood Urea Nitrogen 38 mg/dL (8-24); Bun/Creatinine Ratio 109.2 (12.0-20.0); CO2, Blood 35 mmol/L (21-32); Calcium, Blood 8.3 mg/dL (8.5-10.1); Chloride, Blood 92 mmol/L (98-108); Creatinine, Blood 0.35 mg/dL (0.60-1.20); Globulin, Blood 2.8 g/dL (2.2-4.0); Glomerular Filtration Rate >60 (60-); Glucose, Blood 99 mg/dL (70-99); Magnesium, Blood 1.9 mg/dL (1.6-2.4); Phosphorus, Blood 2.7 mg/dL (2.5-4.9); Potassium, Blood 5.1 mmol/L (3.5-5.5); Sodium, Blood 131 mmol/L (136-145); Total Protein, Blood 4.9 g/dL (6.4-8.2)
[2019-09-30 10:04] LABS: BAND PERCENT MAN 9 % (0-8); BASOPHILS PERCENT MAN 0 % (0-2); EOSINOPHILS PERCENT MAN 0 % (0-6); LYMPHOCYTES ABSOLUTE MAN 1.02 K/mm3 (0.84-5.20); LYMPHOCYTES PERCENT MAN 10 % (21-46); METAMYELOCYTE PERCENT MAN 2 % (0-0); MONOCYTES PERCENT MAN 1 % (4-13); MYELOCYTE ABSOLUTE MAN 0.41 K/mm3 (0.00-0.00); MYELOCYTE PERCENT MAN 4 % (0-0); NEUTROPHILS ABSOLUTE MAN 8.31 K/mm3 (1.96-9.15); PROMYELOCYTE PERCENT MAN 2 % (0-0); SEG NEUTROPHILS PERCENT MAN 72 % (41-73); TOTAL CELLS COUNTED 100
--- NOTE | 2019-09-30 11:59 | NUR ---
PT UNABLE TO EAT SINCE ADMISSION D/T PRESENCE OF BIPAP, UNABLE TO TOLERATE BREAK LONG ENOUGH TO EAT. IS QUITE WEAK. EDUCATED PT ABOUT THE NEED FOR NUTRITION AND CALORIES DURING HIS ILLNESS AND THAT WE WILL HAVE TO FEED HIM BY TUBE, PROCEDURE EXPLAINED AND PT GAVE VERBAL CONSENT TO PROCEED. NGT PLACED 75 CM AT R NARES, PLACEMENT VERIFIED BY DR. LEONARD VIA CXR. PIVOT 1.5 JIM STARTED AT 20 ML/HR WITH 30 ML FWF Q4H. PT TOLERATED WELL.
--- NOTE | 2019-09-30 12:05 | NUR ---
REASSESSMENT: AROUSES TO SPEECH, ANSWERS QUESTIONS AND OBEYS COMMANDS. DENIES PAIN AT THIS TIME. ON BIPAP 20/8, 40% FIO2; RR 32-40, O2 SAT 92-98%, MOUTH BREATHING. LUNG SOUNDS HAVE COARSE CRACKLES THROUGHOUT, VERY WEAK COUGH EFFORT WHEN OFF BIPAP FOR ORAL CARE AND MOUTH SWABS. HAVING FREQUENT PVC'S AND RUNS OF BIGEMINY, DENIES CHEST DISCOMFORT. PRECEDEX ON STAND BY. PINEDA DRAINING ADEQUATE URINE. NO CHANGES TO SKIN, VERY FRAGILE. CAP REFILL AND RADIAL PULSES WNL, HAS CLUBBED NAILS, CIRCULATION WNL. BS ACTIVE IN LUQ AND LLQ, ABD FIRM IN RUQ AND RLQ. SCATTERED PETECHIAE.
--- NOTE | 2019-09-30 15:31 | NUR ---
SINUS TACHY 100-118 SINCE PRECEDEX STOPPED AT 1000, HAVING FREQUENT RUNS OF BIGEMINY. DENIES ANY CHEST DISCOMFORT. SPOKE TO DR. LEONARD BY PHONE TO REPORT, RECEIVED TELEPHONE ORDER TO START LOPRESSOR 12.5 MG PO Q 12 HOURS FIRST DOSE NOW. WILL CONTINUE TO MONITOR.
--- NOTE | 2019-09-30 16:43 | NUR ---
REASSESSMENT: DROWSY, AROUSES TO SPEECH, FOLLOWS COMMANDS, ANSWERS QUESTIONS. TOLERATED SHORT BREAK FROM (~40 MINUTES) BIPAP, ON 4 L/MIN OXYMIZER. WEAK COUGH EFFORT. SHALLOW, TACHYPNEIC 33-40, MOUTH BREATHING. O2 SAT 92-97%, BIPAP 20/8, FIO2 40%. LUNGS STILL SOUND COARSE AND WET. SINUS TACH WITH FREQUENT PVC'S AND RUNS OF BIGEMINY. BS ACTIVE IN LUQ AND LLQ, PASSING FLATUS. TOLERATED SIPS OF WATER. DENIES PAIN AT THIS TIME.
--- NOTE | 2019-09-30 19:23 | NUR ---
SHIFT SUMMARY: BP AND PVC'S DECREASED AFTER ADMINISTRATION OF ATIVAN 1 MG IV AND REPOSITIONING. NO CHANGES TO BIPAP SETTINGS, O2 SAT 100%, RR 29-37. TOLERATING TF @ 25. SR-ST, HR 98-110, FEWER PVC'S. SLEEPING SOUNDLY.
--- NOTE | 2019-09-30 23:29 | NUR ---
ASSUMED CARE OF PT, REPORT RCV'D FROM MARCI JACOBS. PT ALERT TO VERBAL STIMULI, ORIENTED TO SELF/PLACE. PT APPEARS DROWSY AND IS SLOW TO RESPOND TO QUESTIONS. PT ON BIPAP 20/8, 35% WITH SATS IN THE UPPER 90'S. LUNG SOUNDS COARSE WITH WHEEZES T/O, OCCASSIONAL NONPRODUCTIVE COUGH. PT PLACED ON 5L NRB WHEN BIPAP REMOVED. HYPOACTIVE BOWEL SOUNDS IN ALL 4 QUADRANTS, BOWEL CARE STARTED THIS SHIFT. DOBHOFF IN PLACE, PIVOT 1.5 AT GOAL RATE OF 35ML/HR, 100 ML Q4 FLUSH. PINEDA PATENT AND DRAINING DARK YELLOW URINE. SKIN ECCHYMOTIC AND FRAGILE T/O WITH SEVERAL SKIN TEARS. COCCYX SLIGHTLY RED, MEPILEX REMOVED AND REPLACED, MEPILEX TO BILATERAL HEELS. SKIN TEAR SHASTA, LW, AND RFA-PICTURES TAKEN, BANDAGES REPLACED. PRESSURE SORE DEVELOPING ON NOSE AND FOREHEAD D/T BIPAP, WILL GIVE FREQUENT BREAKS FROM BIPAP TO ENCOURAGE SKIN HEALING. EXUDERM PLACED OVER NOSE AND FOREHEAD FOR PROTECTION. PT REMAINS IN BILATERAL SOFT WRIST RESTRAINTS TO PROTECT LINES/TUBES AND KEEP BIPAP IN PLACE. SEE FULL SHIFT ASSESSMENT
--- NOTE | 2019-10-01 03:39 | NUR ---
PT AWAKE, VERY ANXIOUS STATING THAT HE "NEEDS A RIDE HOME" AND NEEDS TO "GET OUT OF HERE NOW". PT REORIENTED, PT CONTINUES TO REQUEST THAT HE GO HOME.
[2019-10-01 04:21] LABS: Hematocrit 28.6 % (37.0-53.0); Hemoglobin 9.4 g/dL (13.5-17.5); LYMPHOCYTES PERCENT AUTO 12 % (21-46); MONOCYTES ABSOLUTE AUTO 1.27 K/mm3 (0.16-1.47); MONOCYTES PERCENT AUTO 9 % (4-13); Mean Corpuscular HGB 32.4 pg (26.0-34.0); Mean Corpuscular HGB Conc 32.9 g/dL (31.5-36.5); Mean Corpuscular Volume 99 fL (80-100); Mean Platelet Volume 12.2 fL (9.1-12.4); NRBC ABSOLUTE 0.21 K/mm3 (0.00-0.02); NRBC Auto 1.4 /100 WBC (0.0-0.2); RDW Coefficient Variation 12.4 % (11.7-14.2); RDW Standard Deviation 45.1 fL (35.1-46.3); White Blood Cell Count 14.56 K/mm3 (4.00-11.30)
[2019-10-01 04:25] LABS: BASOPHILS ABSOLUTE AUTO 0.04 K/mm3 (0.00-0.23); BASOPHILS PERCENT AUTO 0 % (0-2); EOSINOPHILS ABSOLUTE AUTO 0.02 K/mm3 (0.00-0.68); EOSINOPHILS PERCENT AUTO 0 % (0-6); IMMATURE GRAN ABSOLUTE AUTO 2.52 K/mm3 (0.00-0.10); IMMATURE GRAN PERCENT AUTO 17 % (0-1); NEUTROPHILS ABSOLUTE AUTO 9.01 K/mm3 (1.96-9.15); NEUTROPHILS PERCENT AUTO 62 % (41-73); Platelet Count 48 K/mm3 (150-400)
[2019-10-01 04:42] LABS: Alanine Aminotransfer (ALT/SGP 68 U/L (12-78); Albumin, Blood 2.2 g/dL (3.4-5.0); Albumin/Globulin Ratio 0.8 (0.8-1.8); Alk Phos 208 U/L (50-136); Anion Gap 4 mmol/L (6-16); Aspartate Aminotrans (AST/SGOT 800 U/L (12-37); Bilirubin, Total 0.6 mg/dL (0.1-1.0); Blood Urea Nitrogen 37 mg/dL (8-24); Bun/Creatinine Ratio 114.2 (12.0-20.0); CO2, Blood 36 mmol/L (21-32); Calcium, Blood 8.1 mg/dL (8.5-10.1); Chloride, Blood 92 mmol/L (98-108); Creatinine, Blood 0.32 mg/dL (0.60-1.20); Globulin, Blood 2.8 g/dL (2.2-4.0); Glomerular Filtration Rate >60 (60-); Glucose, Blood 119 mg/dL (70-99); Magnesium, Blood 2.1 mg/dL (1.6-2.4); Phosphorus, Blood 2.7 mg/dL (2.5-4.9); Potassium, Blood 4.9 mmol/L (3.5-5.5); Sodium, Blood 132 mmol/L (136-145)
[2019-10-01 04:44] LABS: BAND PERCENT MAN 12 % (0-8); BASOPHILS PERCENT MAN 0 % (0-2); BLASTS PERCENT MAN 2 % (0-0); EOSINOPHILS ABSOLUTE MAN 0.14 K/mm3 (0.00-0.68); EOSINOPHILS PERCENT MAN 1 % (0-6); LYMPHOCYTES ABSOLUTE MAN 1.45 K/mm3 (0.84-5.20); LYMPHOCYTES PERCENT MAN 10 % (21-46); METAMYELOCYTE ABSOLUTE MAN 0.72 K/mm3 (0.00-0.00); METAMYELOCYTE PERCENT MAN 5 % (0-0); MONOCYTES ABSOLUTE MAN 0.29 K/mm3 (0.16-1.47); MONOCYTES PERCENT MAN 2 % (4-13); MYELOCYTE ABSOLUTE MAN 0.14 K/mm3 (0.00-0.00); MYELOCYTE PERCENT MAN 1 % (0-0); NEUTROPHILS ABSOLUTE MAN 10.77 K/mm3 (1.96-9.15); PROMYELOCYTE ABSOLUTE MAN 0.72 K/mm3 (0.00-0.00); PROMYELOCYTE PERCENT MAN 5 % (0-0); SEG NEUTROPHILS PERCENT MAN 62 % (41-73); TOTAL CELLS COUNTED 100
--- NOTE | 2019-10-01 06:31 | NUR ---
SHIFT SUMMARY PT REMAINS ON BIPAP 23/01 35%. PT SLEPT MOST OF THE NIGHT, PRECEDEX REMAINED OFF. PT OCCASIONALLY ANXIOUS REQUESTING A "RIDE HOME" AND STATING THAT HE "NEEDS TO GET OUT OF HERE". VSS T/O SHIFT. SEE PREVIOUS NOTES FROM THIS SHIFT, WILL REPORT TO DAYSHIFT NURSE.
--- NOTE | 2019-10-01 09:23 | NUR ---
CARE ASSUMED CARE AND REPORT ASSUMED FROM BAM COVARRUBIAS. PT SLEEPING IN BED BUT DOES AWAKEN TO PAINFUL AND VERBAL STIMULI. NO S/S PAIN AT THIS TIME. PT IS CALM. A/O X SELF, PLACE, SITUATION; FOLLOWING DIRECTIONS APPROPRIATELY. WRIST RESTRAINTS REMOVED AT 0800. BIPAP REMOVED AND OXYMIZER 5L APPLIED; SPO2 95%. LUNG SOUNDS COARSE AND CRACKLY THROUGHOUT. DOPHOFF SECURED IN NARES. TF AT GOAL RATE 30 ML/HR. AFEBRILE. NSR WITH PVCS, HR 90S. BP WNL. MD MONAHAN SPOKE WITH BROTHER AND PT; BOTH IN AGREEANCE FOR DNR; WILL INTIATE ORDER. WILL CONTINUE TO MONITOR.
--- NOTE | 2019-10-01 11:30 | NUR ---
REASSESSMENT PT RECEIVED BEDBATH, LINEN CHANGE, AND WAS MOVED ONTO A LARGER BED SINCE HIS FEET WERE HITTING THE END OF HIS BED. CHANGED TO DNR STATUS. PT SPOKE WITH HIS BROTHER ON THE TELEPHONE AND IS NOW SLEEPING. VSS. REMAINS IN NSR WITH FREQUENT PVCS. SPO2 95% ON 5L OXYMIZER. TOLERATING TF AT GOAL RATE, 30 ML/HR. HOB ELEVATED AND PT TURNED. WILL CONTINUE TO MONITOR.
--- NOTE | 2019-10-01 15:34 | NUR ---
REASSESSMENT PT HAS SLEPT MOST OF AFTERNOON. VSS. REMAINS IN NSR, WITH FREQUENT PVCS. ALTERNATING BETWEEN OXYMIZER AND BIPAP. CURRENTLY AFEBRILE. APPROPRIATE WITH COMMANDS AND ORIENTATION. WILL CONTINUE TO MONITOR.
--- NOTE | 2019-10-01 17:14 | NUR ---
SHIFT SUMMARY PT SLEPT OFF/ON DURING SHIFT. HOB ELEVATED AND PT TURNED Q2H. ALTERNATED BETWEEN BIPAP AND OXYMIZER 5-6L. THIS EVENING, HE PULLED HIS DOPHOFF OUT AND STATED IT WAS BOTHERING HIM. BP WNL ENTIRE SHIFT. AFEBILE. RECEIVED BANANA BAG TODAY. VOIDED APPROX 1400 ML FROM PINEDA CATHETER. CODE STATUS CHANGED TO DNR/DNI. PALLIATIVE CARE CONSULTED STATUS CHANGE. NPO DURING SHIFT. WILL GIVE BEDSIDE, HANDOFF REPORT TO TIMMY RN.
--- NOTE | 2019-10-01 21:16 | NUR ---
ASSUMED CARE OF PT, REPORT RCV'D FROM MARCI HERNANDEZ. PT ALERT AND ORIENTED, COOPERATIVE WITH CARE, PT EXPRESSES DESIRE TO GO HOME SO HE CAN "SEE HIS 10-YEAR OLD GRANDSON". BREAK FROM BIPAP AT PT'S REQUEST, PLACED ON 5L OXYMIZER, INCREASED TO 7L PT'S SATS DROPPED TO LOW 80'S. PT OCCASIONALLY HAS WEAK NON-PRODUCTIVE COUGH. PLACED BACK ON BIPAP AFTER 45 MIN BREAK. BOWEL TONES HYPOACTIVE BUT SEEM TO BE IMPROVING FROM YESTERDAY, PT REPORTS "PASSING GAS" BUT DOESN'T THINK HE CAN HAVE A BOWEL MOVEMENT YET. MEDICATIONS GIVEN IN APPLESAUCE, PT TOLERATED FINE WITH NO DIFFICULTY SWALLOWING. SEE FULL SHIFT ASSESSMENT
[2019-10-02 03:57] LABS: BASOPHILS ABSOLUTE AUTO 0.09 K/mm3 (0.00-0.23); BASOPHILS PERCENT AUTO 1 % (0-2); Hematocrit 21.7 % (37.0-53.0); Hemoglobin 7.3 g/dL (13.5-17.5); LYMPHOCYTES ABSOLUTE AUTO 2.29 K/mm3 (0.84-5.20); LYMPHOCYTES PERCENT AUTO 15 % (21-46); MONOCYTES ABSOLUTE AUTO 1.51 K/mm3 (0.16-1.47); MONOCYTES PERCENT AUTO 10 % (4-13); Mean Corpuscular HGB Conc 33.6 g/dL (31.5-36.5); Mean Corpuscular Volume 98 fL (80-100); Mean Platelet Volume 12.9 fL (9.1-12.4); NRBC ABSOLUTE 0.24 K/mm3 (0.00-0.02); NRBC Auto 1.6 /100 WBC (0.0-0.2); RDW Coefficient Variation 12.6 % (11.7-14.2); RDW Standard Deviation 45.4 fL (35.1-46.3); Red Blood Cell Count 2.21 M/mm3 (4.30-5.90); White Blood Cell Count 15.39 K/mm3 (4.00-11.30)
[2019-10-02 04:01] LABS: EOSINOPHILS ABSOLUTE AUTO 0.02 K/mm3 (0.00-0.68); EOSINOPHILS PERCENT AUTO 0 % (0-6); IMMATURE GRAN ABSOLUTE AUTO 1.84 K/mm3 (0.00-0.10); IMMATURE GRAN PERCENT AUTO 12 % (0-1); NEUTROPHILS ABSOLUTE AUTO 9.64 K/mm3 (1.96-9.15); NEUTROPHILS PERCENT AUTO 63 % (41-73)
[2019-10-02 04:02] LABS: Platelet Count 43 K/mm3 (150-400)
[2019-10-02 04:14] LABS: Anion Gap 2 mmol/L (6-16); Blood Urea Nitrogen 25 mg/dL (8-24); Bun/Creatinine Ratio 74.4 (12.0-20.0); CO2, Blood 36 mmol/L (21-32); Calcium, Blood 8.3 mg/dL (8.5-10.1); Chloride, Blood 92 mmol/L (98-108); Creatinine, Blood 0.34 mg/dL (0.60-1.20); Glomerular Filtration Rate >60 (60-); Glucose, Blood 105 mg/dL (70-99); Potassium, Blood 4.8 mmol/L (3.5-5.5); Sodium, Blood 130 mmol/L (136-145)
[2019-10-02 04:24] LABS: BAND PERCENT MAN 7 % (0-8); BASOPHILS PERCENT MAN 0 % (0-2); EOSINOPHILS PERCENT MAN 0 % (0-6); LYMPHOCYTES ABSOLUTE MAN 1.53 K/mm3 (0.84-5.20); LYMPHOCYTES PERCENT MAN 10 % (21-46); METAMYELOCYTE PERCENT MAN 2 % (0-0); MONOCYTES ABSOLUTE MAN 0.92 K/mm3 (0.16-1.47); MONOCYTES PERCENT MAN 6 % (4-13); MYELOCYTE PERCENT MAN 2 % (0-0); NEUTROPHILS ABSOLUTE MAN 12.31 K/mm3 (1.96-9.15); SEG NEUTROPHILS PERCENT MAN 73 % (41-73); TOTAL CELLS COUNTED 100
--- NOTE | 2019-10-02 05:48 | NUR ---
SHIFT SUMMARY NO ACUTE CHANGES OVERNIGHT. PT REMAINS ALERT AND ORIENTED, PLEASANT AND COOPERATIVE WITH CARE. PT REMAINS ON BIPAP 20/8 35%, PT HAD MULTIPLE BREAKS FROM BIPAP AND WAS ABLE TO MAINTAIN SATS IN MID 90'S ON 7L OXYMIZER. LUNG REMAIN COARSE WITH WHEEZES T/O, WEAK NON-PRODUCTIVE COUGH. BOWEL TONES REMAIN HYPOACTIVE, ABDOMEN TENDER ON PALPATION. PT ON BEDPAN SEVERAL TIMES WITH NO BOWEL MOVEMENT. ORAL CARE PERFORMED Q4H, MOUTH MOISTURIZER NEEDED. REPOSITIONING Q2H AND PRN. WILL REPORT TO DAYSHIFT NURSE.
--- NOTE | 2019-10-02 08:00 | NUR ---
PT A&0X3. HUSAIN, BUT GENERALLY WEAK. PT DENIES PAIN. VS WDL. LUNGS REMAIN COARSE WITH SCATTERED WZ, BUT NO NOTED RESP. DISTRESS AND MAINTAINS SATS>90% ON 5-7 LITERS OXYMIZER. PT ABLE TO SWALLOW MEDS WHOLE IN APPLESAUCE. PT REQUESTED A SUPPOSITORY-REQUEST GRANTED. PT SKIN IN THIN AND FRAIL-HE HAS MULTIPLE ECCHYMOTIC AREAS TO UPPER EXTREMITIES. MEPILEX TO LEFT FOREARM SKIN TEAR AND TO COCCYX TO PREVENT SKIN BREAKDOWN-BOTH DRESSINGS ARE C/D/I.
--- NOTE | 2019-10-02 11:07 | NUR ---
PT STATES "I NEED SOME AIR!" SATS TO 70'S. RR 30'S. BIPAP PLACE AND REQUESTED NEB TREATMENT.
--- NOTE | 2019-10-02 11:08 | NUR ---
SATS>90% WITH BIPAP IN PLACE.
--- NOTE | 2019-10-02 12:00 | NUR ---
PT TRANSFERRED TO ROOM 360 FROM ICU. HOOKED BACK UP TO CONTINUOUS OXIMETER AND BIPAP CALLD FOR. ENCOURAGED TO BREATHE IN THROUGH HIS NOSE AND OUT HIS MOUTH. OXIMIZER IN PLACE AT 6L/M. HAS BEEN OCC ASKING IF HE NEEDS MORE OXYGEN BUT EXPLAINING TO HIM SATS REMAIN IN 90'S. HAD AN INCONTINENT BM. SET UP TO EAT HIS LUNCH.
--- NOTE | 2019-10-02 12:01 | NUR ---
REPORT PHONED TO MARCI ALLEN. PT TRANSFERED TO ROOM 360 VIA BED.
--- NOTE | 2019-10-02 16:27 | NUR ---
Routine spiritual care note: Mayito appeared to be struggling with bi-pap when I entered room. He seemed to be in a panic and trying to remove mask. INformed RN, who allowed him to remove mask. He is frail with a gentle demeanor. I amm uncertain he grasps his dire dx. He told me about the of his dtr when she was 19. This was very hard on him and he admits he was never the same after that. He spoke of deep love for her son, his grandson. I provided theraputic listening and gentle family service counselor to good effect. He appeared more calm and sleepy by end of visit. I will remain available.
--- NOTE | 2019-10-02 18:13 | NUR ---
SHIFT SUMMARY ATTEMPTED BIPAP THIS AFTERNOON BUT PT REMOVED AND SAID IT DIDN'T FEEL RIGHT. 5L/M BEING BLED INTO MACHINE. REPLACED BACK TO OXIMIZER AND PT TOLERATED THROUGH REMAINDER OF DAY TIL JUST BEFORE DINNER WHEN HE SAT UP TO SIDE OF BED AND STRUGGLED TO MAINTAINED OXYGENATION. CLEANED HIM UP AND REPLACED BIPAP FOR A SHORT TIME TO RECOVER AND PT SAID HE WOULD KEEP IT ON. HAS A LOOSE NONPRODUCTIVE COUGH. FREQENT SHALLOW BREATHING PATTERN.
[2019-10-02 19:22] LABS: Hemoglobin 6.6 g/dL (13.5-17.5)
--- NOTE | 2019-10-03 02:43 | NUR ---
1 UNIT OF (1 ORDERED) TRANSFUSED PER MD ORDERS. TEMP 00.1 OTHERWISE VSS. PT STATED "I FEEL GREAT". AFFECT CHEERFUL. LINE FLUSHED. CALL LIGHT IN REACH. AWAITING LAB DRAWS LATER FOR FOLLOW UP.
--- NOTE | 2019-10-03 05:14 | NUR ---
SHIFT SUMMARY DAY SHIFT HAD REPORTED THAT PT HAD TENDENCY TO BECOME ANXIOUS WHEN FEELING CLAUSTROPHOBIC, PT HAD BEEN SWITCHED TO C PAP FOR SLEEP MODE. WITHIN A FEW HOURS HE DID COMPLAIN OF FEELING A LITTLE ANXIOUS AND WSA SWITCHED BACK TO HIS OXYMASK AND CALMED DOWN. RECEIVED 1 UNIT PRBC PER MD ORDERS, VOIED FELT BETTER POST TRANSFSION. VSS. CURRENTLY RESTING QUIETLY. CALL LIGHT IN REACH
[2019-10-03 08:16] LABS: Hematocrit 22.7 % (37.0-53.0); Hemoglobin 7.4 g/dL (13.5-17.5)
--- NOTE | 2019-10-03 11:08 | NUR ---
Pt sitting on edge of bed upon arrival. Pt appears weak and frail. Tremors noted. Pt is A&OX4 and denies pain at this time. Pt appears dyspneic as evidenced by work of breathing. Engaged in therapeutic discussion regarding goals of care inlcuding options for continued treatment and hospice. Educated on hospice and comfort care philosophy. Pt would like to focus on comfort and is agreeable to comfort care and hospice. Pt gives this RN permission to call and discuss with his brother Knanan. Called and spoke with brother Kannan. Engaged in therapeutic discussion regarding comfort care and hospice. Educated on hospice philosophy with V/U made by Kannan. Answered questions and concerns. Kannan is requesting [facility]. No other concerns reported at this time. Spoke with Paper Reeler Chicho before and after visit with Pt. Prior to calling brotholga Chowirineo reports brother was open to conversation regarding hospice. Called and spoke with Dr Hebert. Relayed Pt and family's wishes for comfort care and hospice. Dr Hebert is agreeable and will place comfort care orders. Palliative Care will remain available for symptom management.
--- NOTE | 2019-10-03 11:40 | NUR ---
PATIENT IS ON COMFORT CARE. PALLIATIVE CARE RN DISCUSSED COMFORT CARE WITH PATIENT AND HIS BROTHER.
--- NOTE | 2019-10-03 15:13 | NUR ---
PATIENT CALLS APPROPRIATELY. HE IS SLEEPING IN BED AT THIS TIME
--- NOTE | 2019-10-03 15:58 | NUR ---
THE PLAN IS FOR THE PATIENT TO BE DISCHARGED HOME WITH HOSPICE TOMORROW. THE PATIENT IS AWARE OF THIS.
--- NOTE | 2019-10-03 17:00 | NUR ---
Routine spiritual care note: Mayito was sitting on side of bed when I visited. He appeared SOB, but told me he felt "ok." He said little, but was pleasant. I am unsure that he knows he is nearing end-of-life. He is hoping to return home soon. I prayed for his grandson at his request. I will remain available.
--- NOTE | 2019-10-03 18:05 | NUR ---
PATIENT IS SITTING UP ON THE SIDE OF HIS BED EATING DINNER. NO COMPLAINTS
--- NOTE | 2019-10-04 04:29 | NUR ---
SHIFT SUMMARY PT PLEASANT AND COOPERATIVE. MOOD SEEMED GOOD THIS EVENING. PT GRATEFUL FOR PLAN TO HEAD HOME TODAY. PT REPORTED SOME MILD PAIN IN R SHOULDER/CHEST/BACK. MEDICATED X 1 W/ 10 MG ROXANOL. PT TOLERATED WELL AND REPORTED GOOD EFFECT. PINEDA CATHETER PATENT AND DRAINING DARK YELLOW URINE. PT CONTINUES TO HAVE GOOD OUTPUT. PT HAD MULTIPLE SMALL BLACK/DARK BROWN SOFT STOOLS THIS EVENING. PT REMAINED ON 15 L OXYMIZER. SOME SOB AT TIMES. PT REQUESTS BREATHING TX'S NEEDED. PT RESTING COMFORTABLY AT THIS TIME. WILL CONTINUE TO MONITOR.
--- NOTE | 2019-10-04 07:55 | NUR ---
PATIENT TO DC TO HOME ON HOSPICE AT 0830.
[2019-10-04] MEDS ORDERED: METO25ER PO (08:15)
[2019-10-04] MEDS ORDERED: Ativan1 MG PO (08:15)
[2019-10-04] MEDS ORDERED: MORP20L PO (08:17)
--- NOTE | 2019-10-04 08:30 | NUR ---
PATIENT D/C'D TO HOME ON HOSPICE VIA [facility]. HARD SCRIPTS FOR MORPHINE AND ATIVAN PLACED IN DC FOLDER. LEFT A MESSAGE FOR PATIENTS BROTHER ELIN TO CALL BACK WITH ANY QUESTIONS. PATIENT DC'D WITH EDWIN IN PLACE. DENIES ANY PAIN AT TIME OF DC. DENIES ANY FURTHER QUESTIONS OR CONCERNS.
== END 2019-10-04 08:30 | disposition hospice, home (50) | DRG 204 ==
LOC: ER 19:11 → ICUW 23:56 → MEDS 10-02 12:08
PROVIDERS: Internal Medicine; Internal Medicine Critical Care Medicine; Physician Assistant; ADMIT Internal Medicine
PROC: 5A09357 Assistance with Respiratory Ventilation, Less than 24 Consecutive Hours, Continuous Positive Airway Pressure (ICD-10-PCS; principal; 2019-09-26)
PROC: 8E0ZXY6 Isolation (ICD-10-PCS; 2019-09-26)
DX: R91.8 Other nonspecific abnormal finding of lung field (principal); J96.21 Acute and chronic respiratory failure with hypoxia; J96.22 Acute and chronic respiratory failure with hypercapnia; J18.9 Pneumonia, unspecified organism; R64 Cachexia; Z68.1 Body mass index [BMI] 19.9 or less, adult; J96.11 Chronic respiratory failure with hypoxia; E87.1 Hypo-osmolality and hyponatremia; J44.1 Chronic obstructive pulmonary disease with (acute) exacerbation; E87.2 Acidosis; D62 Acute posthemorrhagic anemia; K92.1 Melena; Z79.82 Long term (current) use of aspirin; I10 Essential (primary) hypertension; F17.210 Nicotine dependence, cigarettes, uncomplicated; R62.7 Adult failure to thrive; I71.2 Thoracic aortic aneurysm, without rupture; F10.10 Alcohol abuse, uncomplicated; Z66 Do not resuscitate
CPT/HCPCS: 0099U; 36415; 36430; 36600; 51703; 70450; 71045; 71260; 80048; 80053; 81001; 82140; 82330; 82550; 82803; 83605; 83690; 83735; 83880; 84100; 84484; 85014; 85018; 85025; 85027; 85379; 85610; 86850; 86900; 86901; 86923; 87086; 93005; 93010; 93306; 94640; 94660; 94762; 99285-25; A9270-GY; C9113; J0456; J0696; J1650; J2060; J2920; J3010; J3411; J3475; J7030; J7040; J7042; J7050; J7060; J7120; J7512; P9016; Q9967; U0002